=== PATIENT | male | born 1995 | race Caucasian/White ===

== ENCOUNTER 2017-12-25 20:59 | Emergency (ER) | payer BC, OTHER ==
[2017-12-25 21:12] VITALS: BP 114/71; BMI 22.4
[2017-12-25] MEDS ORDERED: TORADOL 30 MG VIAL IM ONE (21:47)
[2017-12-25] MEDS ORDERED: TORADOL 60 MG VIAL ONE (21:48)
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
== END 2017-12-25 21:57 | disposition home or self-care (01) ==
LOC: ER 21:26
DX: T14.8XXA Other injury of unspecified body region, initial encounter (principal); V89.2XXA Person injured in unspecified motor-vehicle accident, traffic, initial encounter
CPT/HCPCS: 96372; 99282; J1885

== ENCOUNTER 2017-12-29 03:07 | Emergency (ER) | payer BC, OTHER ==
[2017-12-29 03:13] VITALS: BP 108/63; BMI 22.4
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
== END 2017-12-29 04:00 | disposition home or self-care (01) ==
LOC: ER 03:07
DX: Z04.1 Encounter for examination and observation following transport accident (principal); V89.2XXA Person injured in unspecified motor-vehicle accident, traffic, initial encounter
CPT/HCPCS: 99281; 99282